=== PATIENT | male | born 1975 | race Hispanic/Latino ===

== ENCOUNTER 2017-07-21 17:08 | Emergency (ER) | payer BC ==
[2017-07-21 17:14] VITALS: BMI 27.1
[2017-07-21] MEDS ORDERED: Lactated Ringer's 1,000 ML IV SCH (17:15)
--- NOTE | 2017-07-21 17:24 | ED PDOC ---
HPI: General Adult Time Seen by Provider: 07/21/17 17:13 Chief Complaint (Provider): generalized weakness History Per: Patient History/Exam Limitations: no limitations Onset/Duration Of Symptoms: Days (3), Gradual Current Symptoms Are (Timing): Still Present Severity: Moderate Recently: Treated By A Physician Additional Complaint(s): 41yo male presents to ED with worsening generalized weakness, dizziness, fatigue and general feelings of unwellness. States completed course of augmentin for sinus infection last week. States had full general physical w his PMD within last 2 months, no issues. Denies chest pain, SOB, headache, change in vision or coordination. Past Medical History Reviewed: Historical Data, Nursing Documentation, Vital Signs Vital Signs: Last Vital Signs Temp 97.6 F 07/21/17 17:27 Pulse 70 07/21/17 17:27 Resp 16 07/21/17 17:27 BP 151/76 H 07/21/17 17:27 Pulse Ox 99 07/21/17 17:27 - Medical History PMH: Anxiety Other PMH: takes celexa daily - Surgical History Surgical History: No Surg Hx - Family History Family History: States: Unknown Family Hx - Living Arrangements Living Arrangements: With Family - Social History Alcohol: Other (rarely) - Home Medications Home Medications: Ambulatory Orders Medication Instructions Recorded ALPRAZolam [Xanax] 0.25 mg PO BID PRN #6 tab 10/11/16 Citalopram [celeXA] 20 mg PO DAILY 10/11/16 traMADol [Ultram] 50 mg PO TID PRN #12 tab 10/11/16 - Allergies Allergies/Adverse Reactions: Allergies Allergy/AdvReac Type Severity Reaction Status Date / Time No Known Allergies Allergy Verified 10/11/16 16:15 Review of Systems Constitutional: Positive for: Weakness, Malaise. Negative for: Fever, Chills Cardiovascular: Negative for: Chest Pain, Palpitations Respiratory: Negative for: Cough, Shortness of Breath Gastrointestinal: Negative for: Nausea, Vomiting Genitourinary Male: Negative for: Dysuria, Frequency Musculoskeletal: Negative for: Neck Pain, Shoulder Pain Skin: Negative for: Rash, Lesions, Jaundice Neurological: Positive for: Weakness, Dizziness. Negative for: Numbness, Headache Psych: Negative for: Anxiety, Depression Physical Exam - Reviewed Nursing Documentation Reviewed: Yes Vital Signs Reviewed: Yes - Physical Exam Appears: Positive for: Well, Non-toxic, No Acute Distress Head Exam: Positive for: ATRAUMATIC, NORMAL INSPECTION, NORMOCEPHALIC Skin: Positive for: Normal Color, Warm, DRY Eye Exam: Positive for: EOMI, Normal appearance, PERRL ENT: Positive for: Normal ENT Inspection Neck: Positive for: Normal, Painless ROM Cardiovascular/Chest: Positive for: Regular Rate, Rhythm Respiratory: Positive for: CNT, Normal Breath Sounds Gastrointestinal/Abdominal: Positive for: Normal Exam, Bowel Sounds, Soft Back: Positive for: Normal Inspection Extremity: Positive for: Normal ROM Neurologic/Psych: Positive for: Alert, Oriented - Laboratory Results Result Diagrams: 07/21/17 17:25 07/21/17 17:25 Medical Decision Making Medical Decision Making: cardiac rhythm strip on monitor sinus at 74 without ectopy basic labs ordered, IVF bolus ordered labs reviewed and no clinically significant abnormalities Recd 1L Lactated ringers w improvement of symptoms. DC from ED, followup PMD/. Disposition - Clinical Impression Clinical Impression: Dehydration, Dizziness - Patient ED Disposition Is Patient to be Admitted: No Counseled Patient/Family Regarding: Studies Performed, Diagnosis, Need For Followup - Disposition Disposition: Routine/Home Disposition Time: 18:25 Condition: STABLE Additional Instructions: Followup with PMD in 2-3 days. Instructions: Dizziness (ED), Dehydration (ED) Forms: [employer] (Hungarian)
[2017-07-21 17:30] VITALS: BP 151/76; PULSE 70; RESP 16; TEMP 97.6; O2SAT 99
[2017-07-21 18:00] LABS: BASO % 0.3 % (0.0-2.0); EOS # 0.3 K/uL (0.0-0.7); EOS % 3.1 % (0.0-4.0); HEMATOCRIT 39.6 % (35.0-51.0); LYMPH # 3.4 K/uL (1.0-4.3); MEAN CORPUSCULAR HEMOGLOBIN 29.9 pg (27.0-31.0); MEAN CORPUSCULAR HGB CONC 33.6 g/dL (33.0-37.0); MEAN PLATELET VOLUME 9.5 fl (7.2-11.7); MONO # 0.7 K/uL (0.0-0.8); MONO % 8.3 % (0.0-10.0); NEUT # 4.1 K/uL (1.8-7.0); NEUT % 48.3 % (50.0-75.0); RED CELL DISTRIBUTION WIDTH 12.8 % (11.5-14.5); WHITE BLOOD COUNT 8.6 K/uL (4.8-10.8)
[2017-07-21 18:11] LABS: BLOOD UREA NITROGEN 14 mg/dl (9-20); CALCIUM 9.1 mg/dL (8.4-10.2); CARBON DIOXIDE 27 mmol/L (22-30); CHLORIDE 105 mmol/L (98-107); GFR AFRICAN-AMERICAN > 60; GLUCOSE,RANDOM 94 mg/dL (75-110); POTASSIUM 3.9 MMOL/L (3.6-5.0); SODIUM 142 mmol/l (132-148)
== END 2017-07-21 18:41 | disposition home or self-care (01) ==
LOC: H.ER 17:08
DX: E86.0 Dehydration (principal); F41.9 Anxiety disorder, unspecified
CPT/HCPCS: 80048; 85025; 96360; 99281; J7120